=== PATIENT | female | born 1955 | race Caucasian/White ===

== ENCOUNTER 2020-07-02 14:43 | Outpatient (CLI) | payer BC, SELFPAY ==
--- NOTE | 2020-07-02 15:01 | MM_ITS ---
WS: [id number] BILATERAL SCREENING DIGITAL MAMMOGRAM WITH CAD HISTORY: SCREENING COMPARISON: 06/22/2019 and 06/05/2018 Bilateral CC and MLO views submitted. Computer aided detection analyzed. Breast composition: There are scattered areas of fibroglandular density. No suspicious masses, microc alcifications or architectural distortion. MM/[place] [id number] IMPRESSION: BI-RADS: 1-Negative FOLLOW UP: 1 Year Follow-up
== END 2020-07-02 14:44 | disposition home or self-care (01) ==
LOC: RADSHAW 14:50
PROVIDERS: PCP Internal Medicine; Visit Provider Internal Medicine
DX: Z12.31 Encounter for screening mammogram for malignant neoplasm of breast (principal)
CPT/HCPCS: 77067

== ENCOUNTER 2021-07-23 14:16 | Outpatient (CLI) | payer BC, SELFPAY ==
--- NOTE | 2021-07-23 14:26 | MM_ITS ---
WS: [id number] BILATERAL DIGITAL SCREENING MAMMOGRAPHY WITH CAD CLINICAL INFORMATION: SCREEN HISTORY: Screening mammogram. No current complaints. COMPARISON: July 02, 2020 TECHNIQUE: Bilateral CC and MLO views. FINDINGS: Scattered fibroglandular densities bilaterally. Vascular calcification. No suspicious focal mass, asy mmetry, calcifications, or architectural distortion. No evidence of malignancy. MM/[place] [id number] IMPRESSION: BI-RADS: 2-Benign FOLLOW UP: 1 Year Follow-up Recommend return to annual screening mammography.
== END 2021-07-23 14:17 | disposition home or self-care (01) ==
LOC: RADSHAW 14:21
PROVIDERS: PCP Internal Medicine; Visit Provider Internal Medicine
DX: Z12.31 Encounter for screening mammogram for malignant neoplasm of breast (principal)
CPT/HCPCS: 77067

== ENCOUNTER 2023-05-19 08:52 | Outpatient (CLI) | payer MEDICARE, SELFPAY ==
--- NOTE | 2023-05-19 09:18 | MM_ITS ---
WS: [id number] BILATERAL SCREENING DIGITAL TOMOSYNTHESIS MAMMOGRAM WITH CAD HISTORY: SCREENING COMPARISON: 07/23/2021, 07/02/2020 and 01/15/2016 Bilateral CC and MLO views with tomosynthesis and synthetic mammography submitted. Computer aided det ection analyzed. Breast composition: There are scattered areas of fibroglandular density. No suspicious masses, microc alcifications or architectural distortion. Mild asymmetry in the central RIGHT breast is similar to 2 016. No distortion or calcifications. IMPRESSION: MM/[place] [id number] BI-RADS: 2-Benign FOLLOW UP: 1 Year Follow-up
== END 2023-05-19 08:53 | disposition home or self-care (01) ==
LOC: RAD 08:52
PROVIDERS: PCP Internal Medicine; Visit Provider Internal Medicine
DX: Z12.31 Encounter for screening mammogram for malignant neoplasm of breast (principal)
CPT/HCPCS: 77063; 77067

== ENCOUNTER 2024-06-04 12:31 | Outpatient (CLI) | payer MEDICARE, SELFPAY ==
--- NOTE | 2024-06-04 12:37 | MM_ITS ---
WS: [id number] BILATERAL 3D TOMOSYNTHESIS DIGITAL SCREENING MAMMOGRAPHY WITH CAD CLINICAL INFORMATION: SCREENING HISTORY: Screening mammogram. No current complaints. COMPARISON: 2022 TECHNIQUE: Bilateral CC and MLO views. FINDINGS: Scattered fibroglandular densities bilaterally. No suspicious focal mass, asymmetry, calcifications, or architectural distortion. No evidence of malignancy. Vascular calcifications. MM/MM scr tomosynthesis [id number] IMPRESSION: DENSITY: There are scattered areas of fibroglandular density. BI-RADS: 2 - Benign. FOLLOW UP: 1 Year Follow-up Recommend return to annual screening mammography.
--- NOTE | 2024-06-04 12:37 | XR_ITS ---
WS: [id number] SCREENING DEXA SCAN [place] CLINICAL INFORMATION: OSTEOPOROSIS COMPARISON: 2016 FINDINGS: The L1-L4 bone mineral density measures 0.748 g/cm2. This corresponds to a T score score of -3.6 and Z score of -2.2. Left femoral neck bone mineral density measures 0.647 g/cm2. This corresponds to a T score of -2.9 an d Z score of -1.5. Right femoral neck bone mineral density measures 0.666 g/cm2. This corresponds to a T score -2.7of an d Z score of -1.4. Mean femoral neck bone mineral density measures 0.656 g/cm2. This corresponds to a T score of -2.8 an d Z score of -1.5. LEFT forearm bone mineral density measures 0.58 g/cm2 with a T score of -3.3 and Z score of -1.4 XR/XR DEXA axial skeleton* [id number] IMPRESSION: Osteoporosis lumbar spine. Osteoporosis femoral necks. Osteoporosis LEFT forear m. Patient's FRAX calculated 10 year probability for major osteoporotic fracture i s 17.7% and osteoporotic hip fracture is 5.7%. Bone mineral density lumbar spine increased 1.1% Bone mineral density femoral necks decreased -2.2%
== END 2024-06-04 12:32 | disposition home or self-care (01) ==
LOC: RAD 12:33
PROVIDERS: PCP Internal Medicine; Visit Provider Internal Medicine
DX: Z12.31 Encounter for screening mammogram for malignant neoplasm of breast (principal); Z13.820 Encounter for screening for osteoporosis; M81.0 Age-related osteoporosis without current pathological fracture; R92.323 Mammographic fibroglandular density, bilateral breasts; R92.1 Mammographic calcification found on diagnostic imaging of breast
CPT/HCPCS: 77063; 77067; 77080

== ENCOUNTER 2024-10-03 18:18 | Emergency (ER) | payer MEDICARE, SELFPAY ==
--- NOTE | 2024-10-03 18:20 | USR_ITS ---
PROCEDURE INFORMATION: Exam: US Duplex Right Lower Extremity Veins, Limited Exam date and time: 10/03/2024 6:37 PM Age: 69 years old Clinical indication: Edema, localized; Lower extremity, right; Patient states that she had an injury to the right lower leg in 2004, being struck by a metal fence post. The lower right leg was badly bruised but she did not seek medical attention. In the years that followed she began to develop reddish brown skin discoloration in the gaiter zone, for which she consulted a exhaust emissions automotive technician, who told her there was no skin abnormality. ; Additional info: Leg swelling TECHNIQUE: Imaging protocol: Real-time duplex ultrasound of the right extremity with 2-D bacon scale, color Doppler flow and spectral waveform analysis including responses to compression and other maneuvers (when performed) with image documentation. Limited exam was focused on the right lower extremity veins. COMPARISON: No relevant prior studies available. FINDINGS: Right deep veins: Small superficial femoral and peroneal calf veins with partial channeling of these vessels. The common femoral, femoral, proximal profunda femoral and popliteal veins are patent without thrombus. Normal Doppler waveforms. Normal compressibility and/or augmentation response. Superficial veins: Greater saphenous vein at the saphenofemoral junction is patent without thrombus. Soft tissues: Unremarkable. US/[place] [id number] IMPRESSION: No evidence of deep vein thrombosis.
[2024-10-03 19:06] VITALS: BP 129/83; PULSE 87; RESP 16; TEMP 36.8; O2SAT 95; BMI 24.6
--- NOTE | 2024-10-03 20:04 | ED_ITS ---
HPI - Extremity Problem 2 General: Chief complaint: Extremity Problem,Nontraumatic Stated complaint: Right leg swollen pain Time Seen by Provider: 10/03/24 19:45 Source: patient Mode of arrival: ambulatory Limitations: no limitations History of Present Illness: 69-year-old female who states that she h as had swelling in her right lower leg and calf since Tuesday along with some pain in that leg. She had no fevers no redness she seen at [facility] sent here to rule out DVT. She has no history of DVTs. States pain is a 2 out of 10 denies any known injuries. Associated symptoms: Deny chest pain, fever(s) or rash Related Data Allergies Allergy/AdvReac Type Severity Reaction Status Date / Time codeine Allergy nausea/ Verified 10/03/24 19:11 dizzy Review of Systems 2 Const: Denies: fever(s), chills, body aches or change in appetite ENMT: Denies: throat pain or dental pain Card: Denies: chest pain Resp: Denies: dyspnea GI: Denies: abdominal pain, nausea, vomiting or diarrhea : Denies: dysuria Musc: Reports: extremity pain and extremity swelling; Denies: neck pain or back pain Skin/Breast: Denies: rash Neuro: Denies: headache(s) Physical Exam 2 Const: COMMON NORMALS: no acute distress, patient oriented x3 and healthy appearing HENMT: COMMON NORMALS: normocephalic and atraumatic HEAD & SCALP: n ormocephalic and atraumatic Eye: COMMON NORMALS: conjunctivae normal CONJUNCTIVA: Yes conjunctivae normal Neck/C-Spine: COMMON NORMALS: full ROM and supple Chest: COMMONS NORMALS: normal inspection of the chest Resp: COMMON NORMALS: normal respiratory effort Cardio: COMMON NORMALS: regular rate and regular rhythm RATE: regular rate RHYTHM: regular rhythm Extremity: OTHER: Some swelling noted to right lower leg no obvious deformity distal pulses sensation intact no warmth to touch no rash Neuro: COMMON NORMALS: patient oriented x3, moves all extremities and no focal motor deficits Psych: COMMON NORMALS: mental status grossly normal, Normal thought process present and cooperative THOUGHT PROCESS: Normal thought process present Skin: COMMON NORMALS: no rashes or lesions noted and no wounds GENERAL SKIN EXAM: no rashes or lesions noted Course 2 Vital Signs: Vital signs: Vital Signs Temperature 98.3 F 10/03/24 19:06 Pulse Rate 84 10/03/24 20:30 Respiratory Rate 16 10/03/24 19:06 Blood Pressure 125/81 10/03/24 20:30 Pulse Oximetry 92 10/03/24 20:30 Oxygen Delivery Me thod Room Air 10/03/24 20:30 MDM - Extremity (Nontraumatic) Medical Decision Making Patient presents here with right leg swelling ultrasound showed no DVT blood work was normal she stable for discharge follow-up with PCP return if worsening. Medical Records I reviewed the patient's medical records. Lab Data I reviewed the patient's lab results. 10/03/24 20:18 Radiology Impressions Venous Duplex 10/03/24 18:20 IMPRESSION: No evidence of deep vein thrombosis. Laboratory Results WBC 8.89 10^3/uL (3.29-11.43) 10/03/24 20:18 RBC 4.48 10^6/uL (3.85-5.65) 10/03/24 20:18 Hgb 12.50 g/dL (11.27-16.99) 10/03/24 20:18 Hct 38.9 % (36-47) 10/03/24 20:18 MCV 86.8 fl (85-98) 10/03/24 20:18 MCH 27.9 pg (27-33) 10/03/24 20:18 MCHC 32.1 g/dL (30-55) 10/03/24 20:18 RDW 13.1 % (12.1-15.1) 10/03/24 20:18 Plt Count 300 10^3/cmm (157-399) 10/03/24 20:18 MPV 9.3 fL (7.4-10.4) 10/03/24 20:18 Neut % (Auto) 57.1 % 10/03/24 20:18 Lymph % (Auto) 31.0 % 10/03/24 20:18 Meagher % (Auto) 8.5 % 10/03/24 20:18 Eos % (Auto) 2.0 % 10/03/24 20:18 Baso % (Auto) 0.7 % 10/03/24 20:18 Neut # (Auto) 5.07 10^3/uL (1.8-7.7) 10/03/24 20:18 Lymph # (Auto) 2.8 10^3/uL (0.8-4.8) 10/03/24 20:18 Meagher # (Auto) 0.8 10^3/uL (0.2-0.9) 10/03/24 20:18 Eos # (Auto) 0.2 10^3/uL (0.0-0.8) 10/03/24 20:18 Baso # (Auto) 0.1 10^3/uL (0.0-0.1) 10/03/24 20:18 Nucleated RBC % (auto) 0 % 10/03/24 20:18 Nucleated RBCs # 0.0 /100WBC 10/03/24 20:18 NT-Pro-B Natriuret Pep 58 pg/mL (0-125) 10/03/24 20:18 All radiology interpretation(s) finalized by discharge Discharge Plan Discharge Patient Disposition: Home Clinical Impression: Right leg swelling Condition: Stable Discharge Orders: Discharge ED (Routine); Ordered 10/03/24 Ordered By: Caroline Uriarte Referrals: Gurinder Cottrell MD [Primary Care Provider] - 4-7 days Discharge Diet: Advance as tolerated Discharge Activity: Resume usual activity Patient Instructions: Leg Edema (ED) Print Language: Kiswahili Coding Level of Care Code ED Dowel Sticker Operator for Carmella Bui
[2024-10-03 20:24] LABS: Basophils # 0.1 10^3/uL (0.0-0.1); Basophils % 0.7 %; Eosinophils # 0.2 10^3/uL (0.0-0.8); Hematocrit 38.9 % (36-47); Lymphocytes # 2.8 10^3/uL (0.8-4.8); Mean Corpuscular HGB Conc 32.1 g/dL (30-55); Mean Corpuscular Hemoglobin 27.9 pg (27-33); Mean Corpuscular Volume 86.8 fl (85-98); Mean Platelet Volume 9.3 fL (7.4-10.4); Monocytes # 0.8 10^3/uL (0.2-0.9); Monocytes % 8.5 %; Neutrophils # 5.07 10^3/uL (1.8-7.7); Neutrophils % 57.1 %; Nucleated Red Blood Cells % 0 %; Platelet Count 300 10^3/cmm (157-399); Red Blood Count 4.48 10^6/uL (3.85-5.65); Red Cell Distribution Width 13.1 % (12.1-15.1); White Blood Count 8.89 10^3/uL (3.29-11.43)
[2024-10-03 20:30] VITALS: BP 125/81; PULSE 84; O2SAT 92
[2024-10-03 20:56] LABS: NT Pro B Type Natriuretic Pept 58 pg/mL (0-125)
[2024-10-03 21:26] VITALS: BP 125/81; PULSE 78; O2SAT 95
== END 2024-10-03 21:00 | disposition home or self-care (01) ==
PROVIDERS: Emergency Provider Emergency Medicine; PCP Family Medicine
DX: R60.0 Localized edema (principal)
CPT/HCPCS: 83880; 85025; 93971; 99284

== ENCOUNTER 2024-10-22 09:23 | Outpatient (CLI) | payer MEDICARE, SELFPAY ==
--- NOTE | 2024-10-22 09:26 | MR_ITS ---
WS: [id number] MRI RIGHT lower leg without gadolinium enhancement INDICATION: Pain and swelling RIGHT ankle and tinoco TECHNIQUE: Coronal T1 and STIR sagittal T1 STIR axial PD and T2 fat-sat FINDINGS: Patchy T2 signal normality involving the mid and distal tibial shaft involving the diaphysis. Associated soft tissue edema in the surrounding soft tissue and intramuscular soft tissues. Replacement of the normal fatty T1 marrow signal. Fibula appears normal. Findings are nonspecific and differential considerations in the absence of trauma include infiltrating marrow neoplasm, metastatic disease, lymphoma, or possibly osteomyelitis. Recommend correlation with clinical history. Bone scan may be helpful in further evaluation MR/MR lower leg RT wo con* [id number] IMPRESSION: 1. Patchy signal normality involving the mid and distal tibial diaphysis wit h surrounding soft tissue edema. 2. Differential considerations discussed above. Bone scan may be helpful in fu rther evaluation. Recommend correlation for history of infection or neoplasm.
== END 2024-10-22 09:24 | disposition home or self-care (01) ==
PROVIDERS: PCP Family Medicine; Visit Provider Family Medicine
DX: M79.661 Pain in right lower leg (principal); R93.6 Abnormal findings on diagnostic imaging of limbs
CPT/HCPCS: 73718

== ENCOUNTER 2024-12-12 06:47 | Outpatient (CLI) | payer MEDICARE, SELFPAY ==
--- NOTE | 2024-12-12 06:58 | CT_ITS ---
WS: [id number] Noncontrast CT RIGHT leg TECHNIQUE: Noncontrast CT RIGHT leg with coronal and sagittal reformatted images. Per given history patient recently evaluated at [facility] CLINICAL INFORMATION: PAIN IN RIGHT LOWER LEG COMPARISON: MRI 10/22/2024 DLP: 338.[address] scans at [facility] use at least one of these dose optimization techniques: automated exposure control; mA and/or kV adjustment per patient size (includes targeted exams where dose is matched to clinical indication); or iterative reconstruction. FINDINGS: Normal anatomic alignment. No acute fractures. No visualized acute or healing stress fractures. Bone scan would be more sensitive for evaluation of nondisplaced stress fractures or tinoco splints if indicated. Hypertrophic patella. Joint arthritis RIGHT knee. Trace suprapatellar fluid. Hypertrophic patella. Hypertrophic changes along the joint line. Vascular calcification. Small amount edema at the level of the ankle. Fibula appears normal. CT/CT lower leg RT wo con* [id number] IMPRESSION: 1. No visualized fractures or healing stress fractures. See discussion above. 2. Osteopenia.
== END 2024-12-12 06:48 | disposition home or self-care (01) ==
PROVIDERS: PCP Family Medicine; Visit Provider Orthopaedic Surgery
DX: M17.11 Unilateral primary osteoarthritis, right knee (principal); M89.38 Hypertrophy of bone, other site; R93.6 Abnormal findings on diagnostic imaging of limbs; M85.80 Other specified disorders of bone density and structure, unspecified site
CPT/HCPCS: 73700

== ENCOUNTER 2025-02-04 08:25 | Outpatient (CLI) | payer MEDICARE, SELFPAY ==
--- NOTE | 2025-02-04 10:36 | XR_ITS ---
WS: [id number] XR tibia fibula RT 2V [id number] REASON FOR EXAM: STRESS FX OF R TIBIA FINDINGS: No acute fracture or periosteal reaction. No focal bone lesion. No soft tissue abnormality. XR/XR tibia fibula RT 2V [id number] IMPRESSION: No significant abnormality of the tibia or fibula.
== END 2025-02-04 08:26 | disposition home or self-care (01) ==
LOC: RAD 08:29
PROVIDERS: PCP Family Medicine; Visit Provider Orthopaedic Surgery
DX: M84.361S Stress fracture, right tibia, sequela (principal)
CPT/HCPCS: 73590

== ENCOUNTER 2025-06-05 08:58 | Outpatient (CLI) | payer MEDICARE, SELFPAY ==
--- NOTE | 2025-06-05 09:05 | MM_ITS ---
WS: [id number] BILATERAL SCREENING DIGITAL TOMOSYNTHESIS MAMMOGRAM WITH CAD HISTORY: SCREENING COMPARISON: 06/04/2024, 05/19/2023 Bilateral CC and MLO views with tomosynthesis and synthetic mammography submitted. Computer aided detection analyzed. Breast composition: The breasts are heterogeneously dense, which may obscure small masses. No suspicious masses, microcalcifications or architectural distortion. MM/MM scr BI tomosynthesis [id number] IMPRESSION: BI-RADS: 2 - Benign FOLLOW UP: 1 Year Follow-up
== END 2025-06-05 08:59 | disposition home or self-care (01) ==
LOC: RAD 08:58
PROVIDERS: PCP Family Medicine; Visit Provider Family Medicine
DX: Z12.31 Encounter for screening mammogram for malignant neoplasm of breast (principal); R92.333 Mammographic heterogeneous density, bilateral breasts
CPT/HCPCS: 77063; 77067